=== PATIENT | male | born 1965 | race Two or more races ===

== ENCOUNTER 2021-02-01 20:26 | Emergency (ER) | payer BC ==
[~2021-02-01] VITALS: Ht 172.7 cm; Wt 88.5 kg
[2021-02-01 22:26] VITALS: BP 131/85
== END 2021-02-02 01:00 | disposition home or self-care (01) ==
LOC: ER 20:33
DX: S00.83XA Contusion of other part of head, initial encounter (principal); M62.838 Other muscle spasm; M54.2 Cervicalgia; H02.845 Edema of left lower eyelid; H02.844 Edema of left upper eyelid; Y08.89XA Assault by other specified means, initial encounter; Y93.89 Activity, other specified; Y92.89 Other specified places as the place of occurrence of the external cause; Y99.8 Other external cause status
CPT/HCPCS: 70450; 70486; 72125